=== PATIENT | female | born 1995 | race Caucasian/White ===

== ENCOUNTER 2020-09-09 14:52 | Emergency (ER) | payer OTHER, SELFPAY ==
[2020-09-09 15:00] VITALS: BP 137/124; PULSE 125; RESP 24; TEMP 37.1; O2SAT 98
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
[2020-09-09 15:41] VITALS: BP 125/80; PULSE 90
== END 2020-09-09 15:42 | disposition home or self-care (01) ==
PROVIDERS: Emergency Provider Nurse Practitioner
DX: F41.9 Anxiety disorder, unspecified (principal)
CPT/HCPCS: 99213; G0463